=== PATIENT | male | born 1970 | race Caucasian/White ===

== ENCOUNTER 2020-11-01 04:11 | Inpatient (IN) | payer MEDICAID ==
--- NOTE | 2020-11-01 04:21 | EDM.PDOC ---
"<Love Bragg - Last Filed: 11/01/20 06:53> ED HPI GENERAL MEDICAL PROBLEM - General Chief Complaint: Abdominal Pain Stated Complaint: STOMACH AREA, PASSING BLOOD Time Seen by Provider: 11/01/20 04:45 Source of Information: Reports: Patient, RN History Limitations: Reports: No Limitations - History of Present Illness INITIAL COMMENTS - FREE TEXT/NARRATIVE: ED with c/o mid low abdominal pain past 2 days,, and passing dark bloody stools. Denies upper abdominal pain, chills tonight, decreased abdominal pain, no vomiting. Admits meth last brady. No urinary symptoms Lower Abdomen Pain Score (Numeric/FACES): 6 - Related Data Allergies Allergy/AdvReac Type Severity Reaction Status Date / Time No Known Allergies Allergy Verified 11/01/20 04:38 Home Meds: Home Meds . [No Known Home Meds] 11/01/20 [History] ED ROS GENERAL - Review of Systems Review Of Systems: Comprehensive ROS is negative, except as noted in HPI. ED EXAM, GENERAL - Physical Exam Exam: See Below Exam Limited By: No Limitations General Appearance: Alert, Anxious, Mild Distress Eye Exam: Bilateral Eye: PERRL Ears: Normal External Exam, Normal Canal, Hearing Grossly Normal Nose: Normal Inspection Throat/Mouth: Normal Inspection Head: Atraumatic, Normocephalic Neck: Normal Inspection, Full Range of Motion Respiratory/Chest: No Respiratory Distress, Lungs Clear, Normal Breath Sounds Cardiovascular: Normal Peripheral Pulses, Regular Rate, Rhythm, No Murmur GI/Abdominal: Normal Bowel Sounds, Soft, Tender (general lower abdominal greater suprapubic) Rectal (Males) Exam: Heme + Stool Extremities: Normal Inspection Neurological: Alert, Oriented, Normal Cognition Psychiatric: Normal Affect, Normal Mood Skin Exam: Warm, Dry, Intact, Normal Color Course - Re-Assessments/Exams Free Text/Narrative Re-Assessment/Exam: 11/01/20 06:31 ASHANTI Foreman, On wait list Departure - Departure Disposition: Admitted As Inpatient 67 Clinical Impression: Diverticulitis large intestine w/o perforation or abscess w/o bleeding - Discharge Information Forms: ED Department Discharge <Harman Aburto - Last Filed: 11/01/20 07:49> ED HPI GENERAL MEDICAL PROBLEM - General Source of Information: Reports: Patient, Provider (Love DIOP), RN, RN Notes Reviewed History Limitations: Reports: No Limitations - History of Present Illness Onset: Gradual Duration: Getting Worse Location: Reports: Abdomen Quality: Reports: Ache Severity: Severe Improves with: Reports: None Past Medical History - Past Health History Medical/Surgical History: Denies Medical/Surgical History Social & Family History - Family History Family Medical History: No Pertinent Family History - Tobacco Use Tobacco Use Status *Q: Current Every Day Tobacco User Tobacco Use Within Last Twelve Months: Cigarettes - Recreational Drug Use Recreational Drug Use: Yes Recreational Drug Type: Reports: Methamphetamine ED EXAM, GENERAL - Physical Exam Free Text/Narrative:: No changes to exam as documented by the PA for this encounter. Course - Vital Signs Last Recorded V/S: Last Vital Signs Temp 98.2 F 11/01/20 04:32 Pulse 112 H 11/01/20 04:32 Resp 18 11/01/20 04:32 BP 153/106 H 11/01/20 04:32 Pulse Ox 97 11/01/20 04:32 - Orders/Labs/Meds Orders: Active Orders 24 hr Category Date Time Status CORONAVIRUS COVID-19 MARIAM [MOLEC] Stat Lab 11/01/20 06:40 Received CULTURE BLOOD [BC] Stat Lab 11/01/20 06:15 Received CULTURE BLOOD [BC] Stat Lab 11/01/20 06:20 Received DRUG SCREEN URINE BIORAD [URCHEM] Stat Lab 11/01/20 04:18 Ordered UA W/MICROSCOPIC [URIN] Stat Lab 11/01/20 04:17 Ordered Sodium Chloride 0.9% [Normal Saline] 1,000 ml Med 11/01/20 06:23 Active IV .BOLUS Blood Culture x2 Reflex Set [OM.PC] Stat Oth 11/01/20 06:08 Ordered Medication Orders Sodium Chloride (Normal Saline) 1,000 mls @ 500 mls/hr IV .BOLUS ONE Stop: 11/01/20 08:22 Last Admin: 11/01/20 06:32 Dose: 500 mls/hr Documented by: HAILEY Labs: Laboratory Tests 11/01/20 11/01/20 11/01/20 Range/Units 04:35 04:35 04:35 WBC 18.7 H (5.0-10.0) 10^3/uL RBC 4.68 (4.6-6.2) 10^6/uL Hgb 14.9 (14.0-18.0) g/dL Hct 44.1 (40.0-54.0) % MCV 94.2 (80-100) fL MCH 31.8 (27.0-34.0) pg MCHC 33.8 (33.0-35.0) g/dL Plt Count 332 (150-450) 10^3/uL Neut % (Auto) 74.1 (42.2-75.2) % Lymph % (Auto) 14.1 L (20.5-50.1) % Warrick % (Auto) 11.0 H (2-8) % Eos % (Auto) 0.6 L (1.0-3.0) % Baso % (Auto) 0.2 (0.0-1.0) % PT 10.5 (9.0-12.0) SEC INR 1.0 (0.9-1.2) Sodium 137 (136-145) mmol/L Potassium 3.6 (3.5-5.1) mmol/L Chloride 101 (98-107) mmol/L Carbon Dioxide 22 (21-32) mmol/L Anion Gap 17.6 H (7-13) mEq/L BUN 25 H (7-18) mg/dL Creatinine 1.18 (0.70-1.30) mg/dL Est Cr Clr Drug Dosing 75.73 mL/min Estimated GFR (MDRD) > 60 BUN/Creatinine Ratio 21.2 (No establ ref range) Glucose 128 H (70-99) mg/dL Lactic Acid (0.4-2.0) mmol/L Calcium 8.7 (8.5-10.1) mg/dL Magnesium 2.2 (1.8-2.4) mg/dL Total Bilirubin 0.7 (0.2-1.0) mg/dL AST 83 H (15-37) U/L ALT 95 H (16-63) U/L Alkaline Phosphatase 98 (46-116) U/L Total Protein 7.9 (6.4-8.2) g/dL Albumin 3.8 (3.4-5.0) g/dL Globulin 4.1 Albumin/Globulin Ratio 0.9 Amylase 34 (25-115) U/L Lipase 53 L (73-393) U/L Ethyl Alcohol < 3 (0) mg/dL 11/01/20 Range/Units 06:15 WBC (5.0-10.0) 10^3/uL RBC (4.6-6.2) 10^6/uL Hgb (14.0-18.0) g/dL Hct (40.0-54.0) % MCV (80-100) fL MCH (27.0-34.0) pg MCHC (33.0-35.0) g/dL Plt Count (150-450) 10^3/uL Neut % (Auto) (42.2-75.2) % Lymph % (Auto) (20.5-50.1) % Warrick % (Auto) (2-8) % Eos % (Auto) (1.0-3.0) % Baso % (Auto) (0.0-1.0) % PT (9.0-12.0) SEC INR (0.9-1.2) Sodium (136-145) mmol/L Potassium (3.5-5.1) mmol/L Chloride (98-107) mmol/L Carbon Dioxide (21-32) mmol/L Anion Gap (7-13) mEq/L BUN (7-18) mg/dL Creatinine (0.70-1.30) mg/dL Est Cr Clr Drug Dosing mL/min Estimated GFR (MDRD) BUN/Creatinine Ratio (No establ ref range) Glucose (70-99) mg/dL Lactic Acid 0.8 (0.4-2.0) mmol/L Calcium (8.5-10.1) mg/dL Magnesium (1.8-2.4) mg/dL Total Bilirubin (0.2-1.0) mg/dL AST (15-37) U/L ALT (16-63) U/L Alkaline Phosphatase (46-116) U/L Total Protein (6.4-8.2) g/dL Albumin (3.4-5.0) g/dL Globulin Albumin/Globulin Ratio Amylase (25-115) U/L Lipase (73-393) U/L Ethyl Alcohol (0) mg/dL Meds: Medications Generic Name Dose Route Start Last Admin Trade Name Freq PRN Reason Stop Dose Admin Sodium Chloride 1,000 mls @ 500 mls/hr 11/01/20 06:23 11/01/20 06:32 Normal Saline IV 11/01/20 08:22 500 mls/hr .BOLUS ONE Administration Discontinued Medications Generic Name Dose Route Start Last Admin Trade Name Esteban PRN Reason Stop Dose Admin Hydromorphone HCl 1 mg 11/01/20 06:22 11/01/20 06:31 Hydromorphone 1 Mg/Ml Syringe IVPUSH 11/01/20 06:23 1 mg ONETIME ONE Administration Piperacillin Sod/Tazobactam 100 mls @ 200 mls/hr 11/01/20 06:12 11/01/20 06:3 1 Sod 3.375 gm/ Sodium Chloride IV 11/01/20 06:41 200 mls/hr ONETIME ONE Administration Iopamidol 100 ml 11/01/20 05:09 11/01/20 05:11 Iopamidol 612 Mg/Ml 100 Ml Bottle IVPUSH 11/01/20 05:10 100 ml ONETIME ONE Administration - Radiology Interpretation Free Text/Narrative:: [facility] Final Radiology Report Call: [phone] assistance Online chat: [email or web address] Name: KAYCEE MILTON Age: 50Years M Date: 11/01/2020 SSN: -- : [id number] Study: CT ABDOMEN PELVIS W CONT Requesting Physician: LOVE BRAGG Images: [id number] Addl Studies: Provided Clinical History: pain low abdomen WBC [id number] Contrast: With Contrast Medium: [id number] Contrast Amount: 100 mL Contrast Method: Intravenous (IV) Page 1 of 2 PROCEDURE INFORMATION: Exam: CT Abdomen And Pelvis With Contrast Exam date and time: 11/01/2020 5:22 AM Age: 50 years old Clinical indication: Other: Low abd pain; Additional info: Pain low abdomen wbc [id number] TECHNIQUE: Imaging protocol: Computed tomography of the abdomen and pelvis with contrast. Radiation optimization: All CT scans at this facility use at least one of these dose optimization techniques: automated exposure control; mA and/or kV adjustment per patient size (includes targeted exams where dose is matched to clinical indication); or iterative reconstruction. Contrast material: [id number]; Contrast volume: 100 ml; Contrast route: INTRAVENOUS (IV); COMPARISON: No relevant prior studies available. FINDINGS: Liver: There is mild hypoattenuation of the hepatic parenchyma fatty infiltration. There is a 1.3 cm hypoattenuation lesions seen in the right hepatic lobe adjacent to Newby's pouch possibly representing a small hemangioma or cyst versus focal fatty infiltration. Gallbladder and bile ducts: Normal. No calcified stones. No ductal dilation. Pancreas: Normal. No ductal dilation. Spleen: Normal. No splenomegaly. Adrenal glands: Normal. No mass. Kidneys and ureters: Normal. No hydronephrosis. Stomach and bowel: Diverticula are present the descending colon. There is diffuse bowel wall thickening seen within the descending colon. Some hazy opacities are seen adjacent to the descending colon as well. These findings may represent mild diverticulitis. Appendix: The appendix is visualized and is normal in configuration. YOAN KAYCEE | Final Radiology Report CONFIDENTIALITY STATEMENT This report is intended only for use by the referring physician, and only in accordance with law. If you received this in error, call [phone]. Page 2 of 2 Intraperitoneal space: Unremarkable. No free air. No significant fluid collection. Vasculature: Unremarkable. No abdominal aortic aneurysm. Lymph nodes: Unremarkable. No enlarged lymph nodes. Urinary bladder: Unremarkable as visualized. Reproductive: Unremarkable as visualized. Bones/joints: Unremarkable. No acute fracture. Soft tissues: There are bilateral inguinal hernias containing fat. IMPRESSION: 1. Diverticula are seen on the descending colon. There is bowel wall thickening seen within the descending colon and surrounding hazy opacities are present, findings compatible with inflammatory changes and diverticulitis. 2. Fatty infiltration of the liver focal hypoattenuation seen in right hepatic lobe adjacent to Newby's pouch measuring 1.3 cm possibly representing a small hemangioma or cyst versus focal fatty infiltration. 3. Bilateral inguinal hernias containing fat Thank you for allowing us to participate in the care of your patient. Dictated and Authenticated by: Dwain Fletcher MD 11/01/2020 6:09 AM Central Time ([place] & [place]) - Re-Assessments/Exams Free Text/Narrative Re-Assessment/Exam: 11/01/20 07:39 I assumed care of the pt from Love DIOP at 0700HRS. The PA had attempted to transfer the pt due to GI bleed, but no beds were available anywhere in the region. The pt has not had any GI bleeding or BM since being in the ER. CT demonstrates acute diverticulitis without perf. or abscess. I think the pt can be admitted here for IV antibiotics. Pt may need a nicotine patch. Dr. Vega has accepted the pt for admission. Departure - Departure Time of Disposition: 07:48 (admitted to Dr. Vega) Condition: Good - Discharge Information *PRESCRIPTION DRUG MONITORING PROGRAM REVIEWED*: Not Applicable *COPY OF PRESCRIPTION DRUG MONITORING REPORT IN PATIENT THOMAS: Not Applicable Sepsis Event Note (ED) - Focused Exam Vital Signs: Vital Signs Temp Pulse Resp BP Pulse Ox 11/01/20 04:32 98.2 F 112 H 18 153/106 H 97"
[2020-11-01 04:57] LABS: ANION GAP 17.6 mEq/L (7-13); CHLORIDE,CL 101 mmol/L (98-107); SODIUM,NA 137 mmol/L (136-145)
[2020-11-01] MEDS ORDERED: Iopamidol 612 MG/ML 100 ML Bottle IVPUSH ONE (05:09)
--- NOTE | 2020-11-01 06:09 | CT ---
PROCEDURE INFORMATION: Exam: CT Abdomen And Pelvis With Contrast Exam date and time: 11/01/2020 5:22 AM Age: 50 years old Clinical indication: Other: Low abd pain; Additional info: Pain low abdomen wbc [id number] TECHNIQUE: Imaging protocol: Computed tomography of the abdomen and pelvis with contrast. Radiation optimization: All CT scans at this facility use at least one of these dose optimization techniques: automated exposure control; mA and/or kV adjustment per patient size (includes targeted exams where dose is matched to clinical indication); or iterative reconstruction. Contrast material: [id number]; Contrast volume: 100 ml; Contrast route: INTRAVENOUS (IV); COMPARISON: No relevant prior studies available. FINDINGS: Liver: There is mild hypoattenuation of the hepatic parenchyma fatty infiltration. There is a 1.3 cm hypoattenuation lesions seen in the right hepatic lobe adjacent to Newby's pouch possibly representing a small hemangioma or cyst versus focal fatty infiltration. Gallbladder and bile ducts: Normal. No calcified stones. No ductal dilation. Pancreas: Normal. No ductal dilation. Spleen: Normal. No splenomegaly. Adrenal glands: Normal. No mass. Kidneys and ureters: Normal. No hydronephrosis. Stomach and bowel: Diverticula are present the descending colon. There is diffuse bowel wall thickening seen within the descending colon. Some hazy opacities are seen adjacent to the descending colon as well. These findings may represent mild diverticulitis. Appendix: The appendix is visualized and is normal in configuration. Intraperitoneal space: Unremarkable. No free air. No significant fluid collection. Vasculature: Unremarkable. No abdominal aortic aneurysm. Lymph nodes: Unremarkable. No enlarged lymph nodes. Urinary bladder: Unremarkable as visualized. Reproductive: Unremarkable as visualized. Bones/joints: Unremarkable. No acute fracture. Soft tissues: There are bilateral inguinal hernias containing fat. IMPRESSION: 1. Diverticula are seen on the descending colon. There is bowel wall thickening seen within the descending colon and surrounding hazy opacities are present, findings compatible with inflammatory changes and diverticulitis. 2. Fatty infiltration of the liver focal hypoattenuation seen in right hepatic lobe adjacent to Newby's pouch measuring 1.3 cm possibly representing a small hemangioma or cyst versus focal fatty infiltration. 3. Bilateral inguinal hernias containing fat
[2020-11-01] MEDS ORDERED: Piperacillin/Tazobactam 3.375 GM in Sodium Chloride 0.9% 100 ML IV ONE (06:12)
[2020-11-01] MEDS ORDERED: HYDROmorphone 1 MG/ML Syringe IVPUSH ONE (06:22)
[2020-11-01] MEDS ORDERED: Sodium Chloride 0.9% 1,000 ML IV ONE (06:23)
[2020-11-01] MEDS ORDERED: Acetaminophen 325 MG Tab PO PRN (08:14)
[2020-11-01] MEDS ORDERED: Ondansetron 4 MG/2 ML SDV IVPUSH PRN (08:14)
[2020-11-01] MEDS ORDERED: Temazepam 15 MG Cap PO PRN (08:14)
--- NOTE | 2020-11-01 08:14 | PCM.HP ---
H&P History of Present Illness - General Date of Service: 11/01/20 Admit Problem/Dx: Admission Diagnosis/Problem Admission Diagnosis/Problem Diverticulitis - History of Present Illness Initial Comments - Free Text/Narative: Patient is a 50-year-old male with a past medical history of abdominal hernias, tobacco abuse who presented with abdominal pain. Patient states that he was in his usual state of health until this last Monday10-30-20 when he had a sudden onset of midline lower abdominal pain and left lower abdominal pain. Patient states that the pain jami in intensity over the last 2 days. He states that along with this abdominal pain he had several episodes of dark red bowel movements. Patient denies any hematochezia or black stools. Patient states he had a mild 8-10 bowel movements but these were very small. States he is never had any episode of diverticulitis in the past. Patient denies any history of abdominal infections. Patient does smoke approximately 1 pack/day tobacco, does not take any meds chronically. Patient denies any alcohol use. Patient denies any episodes of GI bleeding in the past. Upon patient's arrival to emergency department he was hypertensive with blood pressures of 150/100, tachycardic with rates in the low 100s. Laboratory values included sodium 137, potassium 3.6, WBC 18.7, hemoglobin 14.9, platelet count 332. Lactic acid was normal 0.8, coagulation studies normal. Creatinine 1.18, alcohol level less than 0.03. CT abdomen pelvis without contrast was obtained which showed fatty liver infiltration including a possible liver cyst/angioma/fatty infiltration, diverticulosis with findings in the descending colon of possible diverticulitis. Patient was given fluids, started on Zosyn IV and admitted for further monitoring and evaluation. Lower Abdomen Pain Score (Numeric/FACES): 6 - Related Data Allergies/Adverse Reactions: Allergies Allergy/AdvReac Type Severity Reaction Status Date / Time No Known Allergies Allergy Verified 11/01/20 04:38 Home Medications: Home Meds . [No Known Home Meds] 11/01/20 [History] Past Medical History - Past Health History Medical/Surgical History: Denies Medical/Surgical History HEENT History: Reports: None Cardiovascular History: Reports: None Respiratory History: Reports: None Gastrointestinal History: Reports: Hiatal Hernia Genitourinary History: Reports: None Musculoskeletal History: Reports: None Neurological History: Reports: None Psychiatric History: Reports: Addiction Endocrine/Metabolic History: Reports: None Hematologic History: Reports: None Oncologic (Cancer) History: Reports: None Dermatologic History: Reports: None - Infectious Disease History Infectious Disease History: Reports: None - Past Surgical History Head Surgeries/Procedures: Reports: None GI Surgical History: Reports: Hernia, Abdominal, Hernia Repair/Other Social & Family History - Family History Family Medical History: No Pertinent Family History - Tobacco Use Tobacco Use Status *Q: Current Every Day Tobacco User Years of Tobacco use: 20 Packs/Tins Daily: 0.5 - Caffeine Use Caffeine Use: Reports: Soda - Recreational Drug Use Recreational Drug Use: Yes Recreational Drug Type: Reports: Methamphetamine Recreational Drug Use Frequency: Binges H&P Review of Systems - Review of Systems: Review Of Systems: Comprehensive ROS is negative, except as noted in HPI. Exam - Exam Exam: See Below - Vital Signs Vital Signs: Last Vital Signs Temp 98.2 F 11/01/20 04:32 Pulse 112 H 11/01/20 04:32 Resp 18 11/01/20 04:32 BP 153/106 H 11/01/20 04:32 Pulse Ox 97 11/01/20 04:32 Weight: 209 lb - Exam General: Alert, Oriented, Mild Distress HEENT: Conjunctiva Clear Neck: Supple, Trachea Midline Lungs: Clear to Auscultation, Normal Respiratory Effort Cardiovascular: Regular Rate, Regular Rhythm GI/Abdominal Exam: Normal Bowel Sounds, Tender (Tenderness in the left lower quadrant with no rebound or guarding) Extremities: Normal Inspection, Normal Range of Motion Peripheral Pulses: 3+: Radial (L), Radial (R) Skin: Warm, Dry Neurological: Cranial Nerves Intact, Strength Equal Bilateral Neuro Extensive - Mental Status: Alert, Oriented x3, Normal Mood/Affect, Normal Cognition Neuro Extensive - Motor, Sensory, Reflexes: CN II-XII Intact, Normal Gait Psychiatric: Alert, Normal Affect, Normal Mood - Patient Data Lab Results Last 24 hrs: Laboratory Results - last 24 hr 11/01/20 11/01/20 11/01/20 Range/Units 04:35 04:35 04:35 WBC 18.7 H (5.0-10.0) 10^3/uL RBC 4.68 (4.6-6.2) 10^6/uL Hgb 14.9 (14.0-18.0) g/dL Hct 44.1 (40.0-54.0) % MCV 94.2 (80-100) fL MCH 31.8 (27.0-34.0) pg MCHC 33.8 (33.0-35.0) g/dL Plt Count 332 (150-450) 10^3/uL Neut % (Auto) 74.1 (42.2-75.2) % Lymph % (Auto) 14.1 L (20.5-50.1) % Pershing % (Auto) 11.0 H (2-8) % Eos % (Auto) 0.6 L (1.0-3.0) % Baso % (Auto) 0.2 (0.0-1.0) % PT 10.5 (9.0-12.0) SEC INR 1.0 (0.9-1.2) Sodium 137 (136-145) mmol/L Potassium 3.6 (3.5-5.1) mmol/L Chloride 101 (98-107) mmol/L Carbon Dioxide 22 (21-32) mmol/L Anion Gap 17.6 H (7-13) mEq/L BUN 25 H (7-18) mg/dL Creatinine 1.18 (0.70-1.30) mg/dL Est Cr Clr Drug Dosing 75.73 mL/min Estimated GFR (MDRD) > 60 BUN/Creatinine Ratio 21.2 (No establ ref range) Glucose 128 H (70-99) mg/dL Lactic Acid (0.4-2.0) mmol/L Calcium 8.7 (8.5-10.1) mg/dL Magnesium 2.2 (1.8-2.4) mg/dL Total Bilirubin 0.7 (0.2-1.0) mg/dL AST 83 H (15-37) U/L ALT 95 H (16-63) U/L Alkaline Phosphatase 98 (46-116) U/L Total Protein 7.9 (6.4-8.2) g/dL Albumin 3.8 (3.4-5.0) g/dL Globulin 4.1 Albumin/Globulin Ratio 0.9 Amylase 34 (25-115) U/L Lipase 53 L (73-393) U/L Ethyl Alcohol < 3 (0) mg/dL SARS-CoV-2 RNA (MARIAM) (NEGATIVE) 11/01/20 11/01/20 Range/Units 06:15 06:40 WBC (5.0-10.0) 10^3/uL RBC (4.6-6.2) 10^6/uL Hgb (14.0-18.0) g/dL Hct (40.0-54.0) % MCV (80-100) fL MCH (27.0-34.0) pg MCHC (33.0-35.0) g/dL Plt Count (150-450) 10^3/uL Neut % (Auto) (42.2-75.2) % Lymph % (Auto) (20.5-50.1) % Pershing % (Auto) (2-8) % Eos % (Auto) (1.0-3.0) % Baso % (Auto) (0.0-1.0) % PT (9.0-12.0) SEC INR (0.9-1.2) Sodium (136-145) mmol/L Potassium (3.5-5.1) mmol/L Chloride (98-107) mmol/L Carbon Dioxide (21-32) mmol/L Anion Gap (7-13) mEq/L BUN (7-18) mg/dL Creatinine (0.70-1.30) mg/dL Est Cr Clr Drug Dosing mL/min Estimated GFR (MDRD) BUN/Creatinine Ratio (No establ ref range) Glucose (70-99) mg/dL Lactic Acid 0.8 (0.4-2.0) mmol/L Calcium (8.5-10.1) mg/dL Magnesium (1.8-2.4) mg/dL Total Bilirubin (0.2-1.0) mg/dL AST (15-37) U/L ALT (16-63) U/L Alkaline Phosphatase (46-116) U/L Total Protein (6.4-8.2) g/dL Albumin (3.4-5.0) g/dL Globulin Albumin/Globulin Ratio Amylase (25-115) U/L Lipase (73-393) U/L Ethyl Alcohol (0) mg/dL SARS-CoV-2 RNA (MARIAM) Negative (NEGATIVE) Result Diagrams: 11/01/20 04:35 11/01/20 04:35 Cristian Results Last 24 hrs: Microbiology 11/01/20 04:40 Stool Occult Blood (CRISTIAN) - Final Stool / Feces - Problem List (1) Tobacco abuse SNOMED Code(s): 161044663 ICD Code: Z72.0 - TOBACCO USE Status: Acute Current Visit: Yes (2) Diverticulitis large intestine w/o perforation or abscess w/o bleeding SNOMED Code(s): 8472316 ICD Code: K57.32 - DVTRCLI OF LG INT W/O PERFORATION OR ABSCESS W/O BLEEDING Status: Acute Current Visit: No Problem List Initiated/Reviewed/Updated: Yes Orders Last 24hrs: Active Orders 24 hr Category Date Time Status Admission Diagnosis [ADT] Stat ADT 11/01/20 07:45 Ordered Admission Status [Patient Status] [ADT] Routine ADT 11/01/20 07:46 Active CULTURE BLOOD [BC] Stat Lab 11/01/20 06:15 Received CULTURE BLOOD [BC] Stat Lab 11/01/20 06:20 Received DRUG SCREEN URINE BIORAD [URCHEM] Stat Lab 11/01/20 08:00 Received UA W/MICROSCOPIC [URIN] Stat Lab 11/01/20 04:17 Ordered Sodium Chloride 0.9% [Normal Saline] 1,000 ml Med 11/01/20 06:23 Active IV .BOLUS Blood Culture x2 Reflex Set [OM.PC] Stat Oth 11/01/20 06:08 Ordered Medication Orders Sodium Chloride (Normal Saline) 1,000 mls @ 500 mls/hr IV .BOLUS ONE Stop: 11/01/20 08:22 Last Admin: 11/01/20 06:32 Dose: 500 mls/hr Documented by: HAILEY Assessment/Plan Comment:: Diverticulitis -Most likely diagnosis given patient's left lower quadrant pain, findings on CT scan, leukocytosis - also in the differential would be possibility of ischemic colitis although this is less likely given patient's age and risk factors. -Given patient's significant pain, leukocytosis and tachycardia I believe inpatient management is appropriate. -We will continue with IV Zosyn - based on patient's improvement in the next 24 to 48 hours will transition to p.o. antibiotics with likely ciprofloxacin and Flagyl for a total of 10 days of therapy - blood cultures pending -Continue IV fluid resuscitation and pain control regiment, clear liquid diet -Given this is patient's first episode of diverticulitis he will also require colonoscopy in approximately 6 to 8 weeks Melanotic stools -Given patient's pain and image findings is unlikely to be GI bleed and more likely melanotic stools secondary to diverticulitis, will give IV Protonix regardless initially and monitor hemoglobin Q8 hours, will discontinue IV Protonix if no further evidence of bleeding -No history of cirrhosis or liver disease -Type and screen ordered Transaminitis -Patient denies any alcohol history, fatty liver noted on CT scan along with a small area that is concerning for hemangioma or fatty infiltration -We will repeat liver enzymes tomorrow, patient does not have any right upper quadrant pain and has a normal alk phos, total bilirubin Tobacco abuse -Cessation counseling offered [id number] mL an hour NS Lyteswithin normal limits Dietclear liquid DVT prophylaxis SCDs for now given melanotic stools GI prophylaxis IV Protonix
[2020-11-01 08:15] LABS: MDMA (ECSTASY), URINE POSITIVE (NEGATIVE); METHADONE,URINE NEGATIVE (NEGATIVE); METHAMPHETAMINES,URINE POSITIVE (NEGATIVE); OPIATES,URINE POSITIVE (NEGATIVE)
[2020-11-01 08:16] LABS: AMPHETAMINES,URINE POSITIVE (NEGATIVE); BARBITURATES,URINE NEGATIVE (NEGATIVE); BENZODIAZEPINE,URINE NEGATIVE (NEGATIVE); OXYCODONE,URINE NEGATIVE (NEGATIVE); PHENCYCLIDINE,URINE NEGATIVE (NEGATIVE); TCA,URINE NEGATIVE (NEGATIVE)
[2020-11-01] MEDS ORDERED: HYDROmorphone 1 MG/ML Syringe IVPUSH PRN (08:41)
[2020-11-01] MEDS: Sodium Chloride 0.9% 1,000 ML IV SCH ×2 (09:05→19:49)
[2020-11-01] MEDS: oxyCODONE 5 MG Tab PO PRN (09:05)
[2020-11-01] MEDS: Pantoprazole 40 MG in Sodium Chloride 0.9% 100 ML IV SCH ×2 (09:06→20:47)
[2020-11-01] MEDS: Piperacillin/Tazobactam 3.375 GM in Sodium Chloride 0.9% 100 ML IV SCH ×2 (14:49→19:48)
[2020-11-01] MEDS: Nicotine 14 MG/24 Hr Patch TRDERM SCH (17:56)
[2020-11-01] MEDS: Check Patch TRDERM SCH (21:00)
[2020-11-01] MEDS ORDERED: fentaNYL 100 MCG/2 ML SDV IVPUSH PRN (21:45)
[2020-11-02] MEDS: Piperacillin/Tazobactam 3.375 GM in Sodium Chloride 0.9% 100 ML IV SCH ×4 (02:04→19:32)
--- NOTE | 2020-11-02 06:18 | PCM.PN ---
- General Info Date of Service: 11/02/20 Admission Dx/Problem (Free Text): Admission Diagnosis/Problem Admission Diagnosis/Problem Diverticulitis Subjective Update: Patient states his abdominal pain is significantly improved from admission. He states that he has not had any nausea or vomiting. Patient states he is tolerating his clear liquid diet with no worsening pain. Denies any fevers or chills. He states that he had a bowel movement last evening and it did not contain any blood. Functional Status: Reports: Pain Controlled - Review of Systems General: Reports: No Symptoms HEENT: Reports: No Symptoms Pulmonary: Reports: No Symptoms Cardiovascular: Reports: No Symptoms Gastrointestinal: Reports: Abdominal Pain Genitourinary: Reports: No Symptoms Musculoskeletal: Reports: No Symptoms Skin: Reports: No Symptoms Neurological: Reports: No Symptoms Psychiatric: Reports: No Symptoms - Patient Data Vitals - Most Recent: Last Vital Signs Temp 98.4 F 11/02/20 02:08 Pulse 97 11/02/20 02:08 Resp 18 11/02/20 02:08 BP 99/67 11/02/20 02:08 Pulse Ox 100 11/02/20 02:08 Weight - Most Recent: 203 lb 11.2 oz I&O - Last 24 Hours: Intake & Output 11/01/20 11/01/20 11/02/20 14:59 22:59 06:59 Intake Total 100 2815 Balance 100 2815 Lab Results Last 24 Hours: Laboratory Results - last 24 hr 11/01/20 11/01/20 11/01/20 Range/Units 04:35 06:15 06:40 Hgb (14.0-18.0) g/dL Lactic Acid 0.8 (0.4-2.0) mmol/L Urine Color (YELLOW) Urine Appearance (CLEAR) Urine pH (5.0-9.0) Ur Specific Cedar (1.005-1.030) Urine Protein (NEGATIVE) Urine Glucose (UA) (NEGATIVE) Urine Ketones (NEGATIVE) Urine Occult Blood (NEGATIVE) Urine Nitrite (NEGATIVE) Urine Bilirubin (NEGATIVE) Urine Urobilinogen (0.2-1.0) mg/dL Ur Leukocyte Esterase (NEGATIVE) Urine RBC (0-5) /HPF Urine WBC (0-5/HPF) /HPF Ur Epithelial Cells (NOT SEEN) /HPF Urine Bacteria (0-FEW/HPF) /HPF Urine Mucus (NOT SEEN) /LPF Urine Opiates Screen (NEGATIVE) Ur Oxycodone Screen (NEGATIVE) Urine Methadone Screen (NEGATIVE) Ur Barbiturates Screen (NEGATIVE) U Tricyclic Antidepress (NEGATIVE) Ur Phencyclidine Scrn (NEGATIVE) Ur Amphetamine Screen (NEGATIVE) U Methamphetamines Scrn (NEGATIVE) Urine MDMA Screen (NEGATIVE) U Benzodiazepines Scrn (NEGATIVE) Urine Cocaine Screen (NEGATIVE) U Marijuana (THC) Screen (NEGATIVE) SARS-CoV-2 RNA (MARIAM) Negative (NEGATIVE) Blood Type O POSITIVE Gel Antibody Screen Negative 11/01/20 11/01/20 11/01/20 Range/Units 08:00 08:00 14:07 Hgb 13.1 L D (14.0-18.0) g/dL Lactic Acid (0.4-2.0) mmol/L Urine Color Yellow (YELLOW) Urine Appearance Clear (CLEAR) Urine pH 6.0 (5.0-9.0) Ur Specific Cedar 1.020 (1.005-1.030) Urine Protein Trace H (NEGATIVE) Urine Glucose (UA) Negative (NEGATIVE) Urine Ketones 15 H (NEGATIVE) Urine Occult Blood Negative (NEGATIVE) Urine Nitrite Negative (NEGATIVE) Urine Bilirubin Negative (NEGATIVE) Urine Urobilinogen 0.2 (0.2-1.0) mg/dL Ur Leukocyte Esterase Negative (NEGATIVE) Urine RBC Not seen (0-5) /HPF Urine WBC 0-5 (0-5/HPF) /HPF Ur Epithelial Cells Rare (NOT SEEN) /HPF Urine Bacteria Not seen (0-FEW/HPF) /HPF Urine Mucus Not seen (NOT SEEN) /LPF Urine Opiates Screen Positive H (NEGATIVE) Ur Oxycodone Screen Negative (NEGATIVE) Urine Methadone Screen Negative (NEGATIVE) Ur Barbiturates Screen Negative (NEGATIVE) U Tricyclic Antidepress Negative (NEGATIVE) Ur Phencyclidine Scrn Negative (NEGATIVE) Ur Amphetamine Screen Positive H (NEGATIVE) U Methamphetamines Scrn Positive H (NEGATIVE) Urine MDMA Screen Positive H (NEGATIVE) U Benzodiazepines Scrn Negative (NEGATIVE) Urine Cocaine Screen Negative (NEGATIVE) U Marijuana (THC) Screen Negative (NEGATIVE) SARS-CoV-2 RNA (MARIAM) (NEGATIVE) Blood Type Gel Antibody Screen Cristian Results Last 24 Hours: Microbiology 11/01/20 04:40 Stool Occult Blood (CRISTIAN) - Final Stool / Feces Med Orders - Current: Current Medications Acetaminophen (Acetaminophen 325 Mg Tab) 650 mg PO Q4H PRN PRN Reason: Pain (Mild 1-3)/fever Fentanyl (Fentanyl 100 Mcg/2 Ml Sdv) 25 mcg IVPUSH Q4HR PRN PRN Reason: Abdominal Pain Pantoprazole Sodium 40 mg/ (Sodium Chloride) 100 mls @ 20 mls/hr IV BID [facility] Last Admin: 11/01/20 20:47 Dose: 20 mls/hr Documented by: Sodium Chloride (Normal Saline) 1,000 mls @ 100 mls/hr IV ASDIRECTED [facility] Last Admin: 11/01/20 19:49 Dose: 100 mls/hr Documented by: Piperacillin Sod/Tazobactam (Sod 3.375 gm/ Sodium Chloride) 100 mls @ 200 mls/hr IV Q6H [facility] Last Admin: 11/02/20 02:04 Dose: 200 mls/hr Documented by: Miscellaneous Information (Check Patch) 1 ea TRDERM BEDTIME [facility] Last Admin: 11/01/20 21:00 Dose: 1 ea Documented by: Nicotine (Nicotine 14 Mg/24 Hr Patch) 14 mg TRDERM DAILY [facility] Last Admin: 11/01/20 17:56 Dose: 14 mg Documented by: Ondansetron HCl (Ondansetron 4 Mg/2 Ml Sdv) 4 mg IVPUSH Q4H PRN PRN Reason: Nausea/Vomiting Oxycodone HCl (Oxycodone 5 Mg Tab) 5 mg PO Q4H PRN PRN Reason: Pain (moderate 4-6) Last Admin: 11/01/20 09:05 Dose: 5 mg Documented by: Sodium Chloride (Sodium Chloride 0.9% 10 Ml Syringe) 10 ml FLUSH ASDIRECTED PRN PRN Reason: Keep Vein Open Temazepam (Temazepam 15 Mg Cap) 15 mg PO BEDTIME PRN PRN Reason: Sleep Discontinued Medications Hydromorphone HCl (Hydromorphone 1 Mg/Ml Syringe) 1 mg IVPUSH ONETIME ONE Stop: 11/01/20 06:23 Last Admin: 11/01/20 06:31 Dose: 1 mg Documented by: Hydromorphone HCl (Hydromorphone 1 Mg/Ml Syringe) 1 mg IVPUSH Q4H PRN PRN Reason: Pain Piperacillin Sod/Tazobactam (Sod 3.375 gm/ Sodium Chloride) 100 mls @ 200 mls/hr IV ONETIME ONE Stop: 11/01/20 06:41 Last Admin: 11/01/20 06:31 Dose: 200 mls/hr Documented by: Sodium Chloride (Normal Saline) 1,000 mls @ 500 mls/hr IV .BOLUS ONE Stop: 11/01/20 08:22 Last Admin: 11/01/20 06:32 Dose: 500 mls/hr Documented by: Piperacillin Sod/Tazobactam (Sod 3.375 gm/ Sodium Chloride) 100 mls @ 200 mls/hr IV Q6H [facility] Last Admin: 11/01/20 19:48 Dose: 200 mls/hr Documented by: Iopamidol (Iopamidol 612 Mg/Ml 100 Ml Bottle) 100 ml IVPUSH ONETIME ONE Stop: 11/01/20 05:10 Last Admin: 11/01/20 05:11 Dose: 100 ml Documented by: - Exam General: Alert, Oriented HEENT: Pupils Equal Neck: Supple Lungs: Clear to Auscultation, Normal Respiratory Effort Cardiovascular: Regular Rate, Regular Rhythm GI/Abdominal Exam: Tender (Minimal tenderness in lower quadrants with no rebound or guarding) Back Exam: Normal Inspection Extremities: Normal Inspection, Normal Range of Motion Peripheral Pulses: 2+: Radial (L), Radial (R) Skin: Warm, Dry Wound/Incisions: Healing Well Neurological: No New Focal Deficit Psy/Mental Status: Alert, Normal Affect, Normal Mood - Patient Data Lab Results Last 24 hrs: Laboratory Results - last 24 hr 11/01/20 11/01/20 11/01/20 Range/Units 04:35 06:15 06:40 Hgb (14.0-18.0) g/dL Lactic Acid 0.8 (0.4-2.0) mmol/L Urine Color (YELLOW) Urine Appearance (CLEAR) Urine pH (5.0-9.0) Ur Specific Cedar (1.005-1.030) Urine Protein (NEGATIVE) Urine Glucose (UA) (NEGATIVE) Urine Ketones (NEGATIVE) Urine Occult Blood (NEGATIVE) Urine Nitrite (NEGATIVE) Urine Bilirubin (NEGATIVE) Urine Urobilinogen (0.2-1.0) mg/dL Ur Leukocyte Esterase (NEGATIVE) Urine RBC (0-5) /HPF Urine WBC (0-5/HPF) /HPF Ur Epithelial Cells (NOT SEEN) /HPF Urine Bacteria (0-FEW/HPF) /HPF Urine Mucus (NOT SEEN) /LPF Urine Opiates Screen (NEGATIVE) Ur Oxycodone Screen (NEGATIVE) Urine Methadone Screen (NEGATIVE) Ur Barbiturates Screen (NEGATIVE) U Tricyclic Antidepress (NEGATIVE) Ur Phencyclidine Scrn (NEGATIVE) Ur Amphetamine Screen (NEGATIVE) U Methamphetamines Scrn (NEGATIVE) Urine MDMA Screen (NEGATIVE) U Benzodiazepines Scrn (NEGATIVE) Urine Cocaine Screen (NEGATIVE) U Marijuana (THC) Screen (NEGATIVE) SARS-CoV-2 RNA (MARIAM) Negative (NEGATIVE) Blood Type O POSITIVE Gel Antibody Screen Negative 11/01/20 11/01/20 11/01/20 Range/Units 08:00 08:00 14:07 Hgb 13.1 L D (14.0-18.0) g/dL Lactic Acid (0.4-2.0) mmol/L Urine Color Yellow (YELLOW) Urine Appearance Clear (CLEAR) Urine pH 6.0 (5.0-9.0) Ur Specific Cedar 1.020 (1.005-1.030) Urine Protein Trace H (NEGATIVE) Urine Glucose (UA) Negative (NEGATIVE) Urine Ketones 15 H (NEGATIVE) Urine Occult Blood Negative (NEGATIVE) Urine Nitrite Negative (NEGATIVE) Urine Bilirubin Negative (NEGATIVE) Urine Urobilinogen 0.2 (0.2-1.0) mg/dL Ur Leukocyte Esterase Negative (NEGATIVE) Urine RBC Not seen (0-5) /HPF Urine WBC 0-5 (0-5/HPF) /HPF Ur Epithelial Cells Rare (NOT SEEN) /HPF Urine Bacteria Not seen (0-FEW/HPF) /HPF Urine Mucus Not seen (NOT SEEN) /LPF Urine Opiates Screen Positive H (NEGATIVE) Ur Oxycodone Screen Negative (NEGATIVE) Urine Methadone Screen Negative (NEGATIVE) Ur Barbiturates Screen Negative (NEGATIVE) U Tricyclic Antidepress Negative (NEGATIVE) Ur Phencyclidine Scrn Negative (NEGATIVE) Ur Amphetamine Screen Positive H (NEGATIVE) U Methamphetamines Scrn Positive H (NEGATIVE) Urine MDMA Screen Positive H (NEGATIVE) U Benzodiazepines Scrn Negative (NEGATIVE) Urine Cocaine Screen Negative (NEGATIVE) U Marijuana (THC) Screen Negative (NEGATIVE) SARS-CoV-2 RNA (MARIAM) (NEGATIVE) Blood Type Gel Antibody Screen Result Diagrams: 11/02/20 06:10 11/02/20 06:10 Cristian Results Last 24 hrs: Microbiology 11/01/20 04:40 Stool Occult Blood (CRISTIAN) - Final Stool / Feces Sepsis Event Note - Evaluation Sepsis Screening Result: No Definite Risk - Focused Exam Vital Signs: Vital Signs Temp Pulse Resp BP Pulse Ox 11/02/20 02:08 98.4 F 97 18 99/67 100 11/01/20 19:56 98.1 F 99 16 126/97 H 100 - Problem List & Annotations (1) Tobacco abuse SNOMED Code(s): 343286223 Code(s): Z72.0 - TOBACCO USE Status: Acute Current Visit: Yes (2) Diverticulitis large intestine w/o perforation or abscess w/o bleeding SNOMED Code(s): 7582255 Code(s): K57.32 - DVTRCLI OF LG INT W/O PERFORATION OR ABSCESS W/O BLEEDING Status: Acute Current Visit: No - Problem List Review Problem List Initiated/Reviewed/Updated: Yes - My Orders Last 24 Hours: My Active Orders 11/01/20 08:14 Up ad Candace [RC] ASDIRECTED Acetaminophen [TylenoL] 650 mg PO Q4H PRN Ondansetron [Zofran] 4 mg IVPUSH Q4H PRN Temazepam [Restoril] 15 mg PO BEDTIME PRN oxyCODONE 5 mg PO Q4H PRN VTE Pharmacological Contraindications [AST] Per Unit Routine Resuscitation Status Routine 11/01/20 08:15 Oxygen Therapy [RC] PRN VTE/DVT Education [RC] 11/01/20 08:16 Sequential Compression Device [OM.PC] Per Unit Routine 11/01/20 08:18 Antiembolic Devices [RC] 11/01/20 08:45 Sodium Chloride 0.9% [Normal Saline] 1,000 ml IV ASDIRECTED 11/01/20 09:00 Pantoprazole [ProTONIX IV] 40 mg Sodium Chloride 0.9% [Normal Saline] 100 ml IV BID 11/01/20 Lunch Clear Liquid Diet [DIET] 11/01/20 12:54 Peripheral IV Care [RC] Sodium Chloride 0.9% [Saline Flush] 10 ml FLUSH ASDIRECTED PRN Peripheral IV Insertion Adult [OM.PC] Routine 11/01/20 16:01 Vital Signs [RC] 02,08,14,22 11/01/20 17:30 Nicotine [Habitrol] 14 mg TRDERM DAILY 11/01/20 21:00 Check Patch 1 ea TRDERM BEDTIME 11/01/20 21:45 fentaNYL [Sublimaze] 25 mcg IVPUSH Q4HR PRN 11/02/20 02:00 Piperacillin/Tazobactam [Zosyn] 3.375 gm Sodium Chloride 0.9% [Normal Saline] 100 ml IV Q6H 11/02/20 05:11 ALANINE AMINOTRANSFERASE,ALT [CHEM] AM ASPARTATE AMNIOTRANSFERASE,AST [CHEM] AM ELECTROLYTES,LYTES [CHEM] AM HEMOGLOBIN [HEME] AM 11/03/20 05:11 ELECTROLYTES,LYTES [CHEM] AM - Plan Plan:: Diverticulitis -Most likely diagnosis given patient's left lower quadrant pain, findings on CT scan, leukocytosis -We will continue with IV Zosyn - based on patient's improvement in the next 24 to 48 hours will transition to p.o. antibiotics with likely ciprofloxacin and Flagyl for a total of 7 days of therapy -Given this is patient's first episode of diverticulitis he will also require colonoscopy in approximately 6 to 8 weeks Melanotic stools -No further melanotic stools, hemoglobin improved from 13.1-13.7, no evidence of GI bleed, melanotic stools likely secondary to diverticulitis, will DC IV Protonix -No further hemoglobin checks unless recurrent melanotic stools Transaminitis -Patient denies any alcohol history, fatty liver noted on CT scan along with a small area that is concerning for hemangioma or fatty infiltration -Liver enzymes stable to decreased with AST of 50 and ALT of 69, likely secondary to fatty liver Tobacco abuse -Cessation counseling offered -Nicotine patch Fluidswill d/c Lyteswithin normal limits Dietclear liquid DVT prophylaxis SCDs for now given melanotic stools
[2020-11-02 06:38] LABS: ANION GAP 14.7 mEq/L (7-13)
[2020-11-02] MEDS: Nicotine 14 MG/24 Hr Patch TRDERM SCH (08:49)
[2020-11-02] MEDS: oxyCODONE 5 MG Tab PO PRN (14:57)
[2020-11-02] MEDS: Sodium Chloride 0.9% 10 ML Syringe FLUSH PRN (19:31)
[2020-11-02] MEDS: Check Patch TRDERM SCH (20:43)
[2020-11-03] MEDS: Piperacillin/Tazobactam 3.375 GM in Sodium Chloride 0.9% 100 ML IV SCH ×3 (01:56→12:39)
[2020-11-03] MEDS: Sodium Chloride 0.9% 10 ML Syringe FLUSH PRN ×3 (01:56→12:39)
--- NOTE | 2020-11-03 06:03 | PCM.PN ---
- General Info Date of Service: 11/03/20 Admission Dx/Problem (Free Text): Admission Diagnosis/Problem Admission Diagnosis/Problem Diverticulitis Subjective Update: Patient states his abdominal pain is significantly improved from admission. He states that he has not had any nausea or vomiting. Patient states he is tolerating his clear liquid diet with no worsening pain. Denies any fevers or chills. Again stated he had a bowel movement previous day and feels well. States that he feels that he can go home today. - Review of Systems General: Reports: No Symptoms HEENT: Reports: No Symptoms Pulmonary: Reports: No Symptoms Cardiovascular: Reports: No Symptoms Gastrointestinal: Reports: No Symptoms, Abdominal Pain (mild) Genitourinary: Reports: No Symptoms Musculoskeletal: Reports: No Symptoms Skin: Reports: No Symptoms Neurological: Reports: No Symptoms Psychiatric: Reports: No Symptoms - Patient Data Vitals - Most Recent: Last Vital Signs Temp 98.1 F 11/03/20 02:00 Pulse 85 11/03/20 02:00 Resp 20 11/03/20 02:00 BP 126/76 11/03/20 02:00 Pulse Ox 93 L 11/03/20 02:00 Weight - Most Recent: 203 lb 11.2 oz I&O - Last 24 Hours: Intake & Output 11/02/20 11/02/20 11/03/20 14:59 22:59 06:59 Intake Total 300 100 Balance 300 100 Lab Results Last 24 Hours: Laboratory Results - last 24 hr 11/02/20 11/02/20 Range/Units 06:10 06:10 Hgb 13.7 L (14.0-18.0) g/dL Sodium 140 (136-145) mmol/L Potassium 3.7 (3.5-5.1) mmol/L Chloride 106 (98-107) mmol/L Carbon Dioxide 23 (21-32) mmol/L Anion Gap 14.7 H (7-13) mEq/L AST 50 H (15-37) U/L ALT 69 H (16-63) U/L Cristian Results Last 24 Hours: Microbiology 11/01/20 06:20 Aerobic Blood Culture - Preliminary Blood - Arm, Right NO GROWTH AFTER 1 DAY Anaerobic Blood Culture - Preliminary NO GROWTH AFTER 1 DAY 11/01/20 06:15 Aerobic Blood Culture - Preliminary Blood - Arm, Left NO GROWTH AFTER 1 DAY Anaerobic Blood Culture - Preliminary NO GROWTH AFTER 1 DAY Med Orders - Current: Current Medications Acetaminophen (Acetaminophen 325 Mg Tab) 650 mg PO Q4H PRN PRN Reason: Pain (Mild 1-3)/fever Piperacillin Sod/Tazobactam (Sod 3.375 gm/ Sodium Chloride) 100 mls @ 200 mls/hr IV Q6H [facility] Last Infusion: 11/03/20 02:35 Dose: Infused Documented by: Miscellaneous Information (Check Patch) 1 ea TRDERM BEDTIME [facility] Last Admin: 11/02/20 20:43 Dose: 1 ea Documented by: Nicotine (Nicotine 14 Mg/24 Hr Patch) 14 mg TRDERM DAILY [facility] Last Admin: 11/02/20 08:49 Dose: 14 mg Documented by: Ondansetron HCl (Ondansetron 4 Mg/2 Ml Sdv) 4 mg IVPUSH Q4H PRN PRN Reason: Nausea/Vomiting Oxycodone HCl (Oxycodone 5 Mg Tab) 5 mg PO Q4H PRN PRN Reason: Pain (moderate 4-6) Last Admin: 11/02/20 14:57 Dose: 5 mg Documented by: Sodium Chloride (Sodium Chloride 0.9% 10 Ml Syringe) 10 ml FLUSH ASDIRECTED PRN PRN Reason: Keep Vein Open Last Admin: 11/03/20 01:56 Dose: 10 ml Documented by: Temazepam (Temazepam 15 Mg Cap) 15 mg PO BEDTIME PRN PRN Reason: Sleep Discontinued Medications Fentanyl (Fentanyl 100 Mcg/2 Ml Sdv) 25 mcg IVPUSH Q4HR PRN PRN Reason: Abdominal Pain Hydromorphone HCl (Hydromorphone 1 Mg/Ml Syringe) 1 mg IVPUSH ONETIME ONE Stop: 11/01/20 06:23 Last Admin: 11/01/20 06:31 Dose: 1 mg Documented by: Hydromorphone HCl (Hydromorphone 1 Mg/Ml Syringe) 1 mg IVPUSH Q4H PRN PRN Reason: Pain Piperacillin Sod/Tazobactam (Sod 3.375 gm/ Sodium Chloride) 100 mls @ 200 mls/hr IV ONETIME ONE Stop: 11/01/20 06:41 Last Admin: 11/01/20 06:31 Dose: 200 mls/hr Documented by: Sodium Chloride (Normal Saline) 1,000 mls @ 500 mls/hr IV .BOLUS ONE Stop: 11/01/20 08:22 Last Admin: 11/01/20 06:32 Dose: 500 mls/hr Documented by: Pantoprazole Sodium 40 mg/ (Sodium Chloride) 100 mls @ 20 mls/hr IV BID [facility] Last Admin: 11/01/20 20:47 Dose: 20 mls/hr Documented by: Sodium Chloride (Normal Saline) 1,000 mls @ 100 mls/hr IV ASDIRECTED [facility] Last Admin: 11/01/20 19:49 Dose: 100 mls/hr Documented by: Piperacillin Sod/Tazobactam (Sod 3.375 gm/ Sodium Chloride) 100 mls @ 200 mls/hr IV Q6H [facility] Last Admin: 11/01/20 19:48 Dose: 200 mls/hr Documented by: Iopamidol (Iopamidol 612 Mg/Ml 100 Ml Bottle) 100 ml IVPUSH ONETIME ONE Stop: 11/01/20 05:10 Last Admin: 11/01/20 05:11 Dose: 100 ml Documented by: - Exam General: Alert, Oriented HEENT: Pupils Equal, Pupils Reactive Neck: Supple Lungs: Clear to Auscultation, Normal Respiratory Effort Cardiovascular: Regular Rate, Regular Rhythm GI/Abdominal Exam: Normal Bowel Sounds (Male) Exam: No Hernia, Normal Inspection Extremities: Normal Inspection Peripheral Pulses: 2+: Radial (L), Radial (R) Skin: Warm, Dry Neurological: No New Focal Deficit Psy/Mental Status: Alert, Normal Affect - Patient Data Lab Results Last 24 hrs: Laboratory Results - last 24 hr 11/02/20 11/02/20 Range/Units 06:10 06:10 Hgb 13.7 L (14.0-18.0) g/dL Sodium 140 (136-145) mmol/L Potassium 3.7 (3.5-5.1) mmol/L Chloride 106 (98-107) mmol/L Carbon Dioxide 23 (21-32) mmol/L Anion Gap 14.7 H (7-13) mEq/L AST 50 H (15-37) U/L ALT 69 H (16-63) U/L Result Diagrams: 11/02/20 06:10 11/02/20 06:10 Cristian Results Last 24 hrs: Microbiology 11/01/20 06:20 Aerobic Blood Culture - Preliminary Blood - Arm, Right NO GROWTH AFTER 1 DAY Anaerobic Blood Culture - Preliminary NO GROWTH AFTER 1 DAY 11/01/20 06:15 Aerobic Blood Culture - Preliminary Blood - Arm, Left NO GROWTH AFTER 1 DAY Anaerobic Blood Culture - Preliminary NO GROWTH AFTER 1 DAY Sepsis Event Note - Evaluation Sepsis Screening Result: Possible Sepsis Risk - Focused Exam Vital Signs: Vital Signs Temp Pulse Resp BP Pulse Ox 11/03/20 02:00 98.1 F 85 20 126/76 93 L 11/02/20 20:00 98.2 F 86 20 131/84 96 - Problem List & Annotations (1) Tobacco abuse SNOMED Code(s): 698116432 Code(s): Z72.0 - TOBACCO USE Status: Acute Current Visit: Yes (2) Diverticulitis large intestine w/o perforation or abscess w/o bleeding SNOMED Code(s): 4473646 Code(s): K57.32 - DVTRCLI OF LG INT W/O PERFORATION OR ABSCESS W/O BLEEDING Status: Acute Current Visit: No - Problem List Review Problem List Initiated/Reviewed/Updated: Yes - My Orders Last 24 Hours: My Active Orders 11/02/20 08:41 Consult to Case Management/Credit Balance Specialist [CONS] Routine 11/02/20 Lunch Full Liquid Diet [DIET] - Plan Plan:: Diverticulitis -Most likely diagnosis given patient's left lower quadrant pain, findings on CT scan, leukocytosis -Given patient's significant improvement in overall symptoms and exam will transition to p.o. antibiotics upon discharge today. We will plan for a total of 7 days of therapy and will use ciprofloxacin 500 mg p.o. twice daily and Flagyl 500 mg every 8 hrs Melanotic stools -Resolved Transaminitis -Patient denies any alcohol history, fatty liver noted on CT scan along with a small area that is concerning for hemangioma or fatty infiltration -Liver enzymes stable to decreased with AST of 50 and ALT of 69, likely secondary to fatty liver Tobacco abuse -Cessation counseling offered -Nicotine patch Fluidsnone Lyteswithin normal limits Dietclear liquid Medically stable for discharge
[2020-11-03] MEDS: Nicotine 14 MG/24 Hr Patch TRDERM SCH (08:35)
--- NOTE | 2020-11-03 10:53 | PCM.DCSUM1 ---
Discharge Summary - Hospital Course Free Text/Narrative:: Patient is a 50-year-old male with a past medical history of abdominal hernias, tobacco abuse who presented with abdominal pain. Patient states that he was in his usual state of health until this last Monday10-30-20 when he had a sudden onset of midline lower abdominal pain and left lower abdominal pain. Patient states that the pain jami in intensity over the last 2 days. He states that along with this abdominal pain he had several episodes of dark red bowel movements. Patient denies any hematochezia or black stools. Patient states he had a mild 8-10 bowel movements but these were very small. States he is never had any episode of diverticulitis in the past. Patient denies any history of abdominal infections. Patient does smoke approximately 1 pack/day tobacco, does not take any meds chronically. Patient denies any alcohol use. Patient denies any episodes of GI bleeding in the past. Upon patient's arrival to emergency department he was hypertensive with blood pressures of 150/100, tachycardic with rates in the low 100s. Laboratory values included sodium 137, potassium 3.6, WBC 18.7, hemoglobin 14.9, platelet count 332. Lactic acid was normal 0.8, coagulation studies normal. Creatinine 1.18, alcohol level less than 0.03. CT abdomen pelvis without contrast was obtained which showed fatty liver infiltration including a possible liver cyst/angioma/fatty infiltration, diverticulosis with findings in the descending colon of possible diverticulitis. Patient was given fluids, started on Zosyn IV and admitted for further monitoring and evaluation. Patient was admitted for further evaluation. Patient was given IV antibiotics w ith IV Zosyn, initially was given significant fluid resuscitation and maintained on a clear liquid diet. Patient had continued improvement in his abdominal pain, remained afebrile and blood cultures are negative for growth. As per patient's melanotic stools his hemoglobin monitored and remained stable. Patient had no further melanotic stools. The stools in my opinion are likely related to the inflammation from diverticulitis. Patient was tolerating liquid diet, his pain was well controlled on p.o. medications and he remained stable and afebrile for greater than 48 hours. Plan to discharge patient to home with p.o. antibiotics for a total of 7 days of therapy. Discussed with patient that he should follow- up with his PCP. Also given that this is patient's 1st episode of diverticulitis recommend a colonoscopy be performed after 6 to 8 weeks. - Discharge Data Discharge Date: 11/03/20 Discharge Disposition: Home, Self-Care 01 Condition: Stable - Referral to Home Health Primary Care Physician: PCP None - Discharge Diagnosis/Problem(s) (1) Tobacco abuse SNOMED Code(s): 832328048 ICD Code: Z72.0 - TOBACCO USE Status: Acute Current Visit: Yes (2) Diverticulitis large intestine w/o perforation or abscess w/o bleeding SNOMED Code(s): 6432273 ICD Code: K57.32 - DVTRCLI OF LG INT W/O PERFORATION OR ABSCESS W/O BLEEDING Status: Acute Current Visit: No - Patient Summary/Data Consults: Consultations 11/02/20 08:41 Consult to Case Management/Industrial Electrical Technician [CONS] Routine - Patient Instructions Diet: Full Liquid Diet (continue for next 2-3 days then advance as tolerated ) - Discharge Plan *PRESCRIPTION DRUG MONITORING PROGRAM REVIEWED*: Yes *COPY OF PRESCRIPTION DRUG MONITORING REPORT IN PATIENT THOMAS: Not Applicable Prescriptions/Med Rec: Ciprofloxacin [Ciprofloxacin HCl] 500 mg PO BID 5 Days #10 tab metroNIDAZOLE [Flagyl] 500 mg PO Q8H 5 Days #15 tab oxyCODONE 5 mg PO Q6HR PRN #12 tablet PRN Reason: Pain (Moderate 4-6) Home Medications: Home Meds Ciprofloxacin [Ciprofloxacin HCl] 500 mg PO BID 5 Days #10 tab 11/03/20 [Rx] metroNIDAZOLE [Flagyl] 500 mg PO Q8H 5 Days #15 tab 11/03/20 [Rx] oxyCODONE 5 mg PO Q6HR PRN #12 tablet 11/03/20 [Rx] Forms: ED Department Discharge Referrals: PCP,None [Primary Care Provider] - - Discharge Summary/Plan Comment DC Time >30 min.: Yes Total # of Minutes for Discharge Time: 30 minutes - Patient Data Vitals - Most Recent: Last Vital Signs Temp 96.6 F L 11/03/20 07:31 Pulse 78 11/03/20 07:31 Resp 20 11/03/20 07:31 BP 103/62 11/03/20 07:31 Pulse Ox 96 11/03/20 08:00 Weight - Most Recent: 203 lb 11.2 oz I&O - Last 24 hours: Intake & Output 11/02/20 11/03/20 11/03/20 22:59 06:59 14:59 Intake Total 300 175 600 Balance 300 175 600 JOVANNA Results - Last 24 hrs: Microbiology 11/01/20 06:20 Aerobic Blood Culture - Preliminary Blood - Arm, Right NO GROWTH AFTER 2 DAYS Anaerobic Blood Culture - Preliminary NO GROWTH AFTER 2 DAYS 11/01/20 06:15 Aerobic Blood Culture - Preliminary Blood - Arm, Left NO GROWTH AFTER 2 DAYS Anaerobic Blood Culture - Preliminary NO GROWTH AFTER 2 DAYS Med Orders - Current: Current Medications Acetaminophen (Acetaminophen 325 Mg Tab) 650 mg PO Q4H PRN PRN Reason: Pain (Mild 1-3)/fever Piperacillin Sod/Tazobactam (Sod 3.375 gm/ Sodium Chloride) 100 mls @ 200 mls/hr IV Q6H [facility] Last Admin: 11/03/20 08:38 Dose: 200 mls/hr Documented by: Miscellaneous Information (Check Patch) 1 ea TRDERM BEDTIME [facility] Last Admin: 11/02/20 20:43 Dose: 1 ea Documented by: Nicotine (Nicotine 14 Mg/24 Hr Patch) 14 mg TRDERM DAILY [facility] Last Admin: 11/03/20 08:35 Dose: 14 mg Documented by: Ondansetron HCl (Ondansetron 4 Mg/2 Ml Sdv) 4 mg IVPUSH Q4H PRN PRN Reason: Nausea/Vomiting Oxycodone HCl (Oxycodone 5 Mg Tab) 5 mg PO Q4H PRN PRN Reason: Pain (moderate 4-6) Last Admin: 11/02/20 14:57 Dose: 5 mg Documented by: Sodium Chloride (Sodium Chloride 0.9% 10 Ml Syringe) 10 ml FLUSH ASDIRECTED PRN PRN Reason: Keep Vein Open Last Admin: 11/03/20 08:38 Dose: 10 ml Documented by: Temazepam (Temazepam 15 Mg Cap) 15 mg PO BEDTIME PRN PRN Reason: Sleep Discontinued Medications Fentanyl (Fentanyl 100 Mcg/2 Ml Sdv) 25 mcg IVPUSH Q4HR PRN PRN Reason: Abdominal Pain Hydromorphone HCl (Hydromorphone 1 Mg/Ml Syringe) 1 mg IVPUSH ONETIME ONE Stop: 11/01/20 06:23 Last Admin: 11/01/20 06:31 Dose: 1 mg Documented by: Hydromorphone HCl (Hydromorphone 1 Mg/Ml Syringe) 1 mg IVPUSH Q4H PRN PRN Reason: Pain Piperacillin Sod/Tazobactam (Sod 3.375 gm/ Sodium Chloride) 100 mls @ 200 mls/hr IV ONETIME ONE Stop: 11/01/20 06:41 Last Admin: 11/01/20 06:31 Dose: 200 mls/hr Documented by: Sodium Chloride (Normal Saline) 1,000 mls @ 500 mls/hr IV .BOLUS ONE Stop: 11/01/20 08:22 Last Admin: 11/01/20 06:32 Dose: 500 mls/hr Documented by: Pantoprazole Sodium 40 mg/ (Sodium Chloride) 100 mls @ 20 mls/hr IV BID [facility] Last Admin: 11/01/20 20:47 Dose: 20 mls/hr Documented by: Sodium Chloride (Normal Saline) 1,000 mls @ 100 mls/hr IV ASDIRECTED [facility] Last Admin: 11/01/20 19:49 Dose: 100 mls/hr Documented by: Piperacillin Sod/Tazobactam (Sod 3.375 gm/ Sodium Chloride) 100 mls @ 200 mls/hr IV Q6H [facility] Last Admin: 11/01/20 19:48 Dose: 200 mls/hr Documented by: Iopamidol (Iopamidol 612 Mg/Ml 100 Ml Bottle) 100 ml IVPUSH ONETIME ONE Stop: 11/01/20 05:10 Last Admin: 11/01/20 05:11 Dose: 100 ml Documented by: *Q Meaningful Use (DIS) - VTE *Q VTE Pharmacological Contraindications *Q: Active Hemorrhage
== END 2020-11-03 14:10 | disposition home or self-care (01) | DRG 392 ==
LOC: DL.ED 04:11 → DL.MS 07:46
PROVIDERS: ADMIT Internal Medicine; ATTEND Internal Medicine
DX: K57.32 Diverticulitis of large intestine without perforation or abscess without bleeding (principal); F17.210 Nicotine dependence, cigarettes, uncomplicated; I10 Essential (primary) hypertension; K44.9 Diaphragmatic hernia without obstruction or gangrene; Z98.890 Other specified postprocedural states; R74.01 Elevation of levels of liver transaminase levels; Z20.822 Contact with and (suspected) exposure to COVID-19
CPT/HCPCS: 36415; 74177; 80051; 80053; 80305-QW; 80307; 81001; 82150; 82272; 83605; 83690; 83735; 84450; 84460; 85018; 85025; 85610; 86850; 86900; 86901; 87040; 96365; 96375; 99285-25; A9270-GY; C9113; J1170; J2543; J7030; Q9967; U0002